=== PATIENT | female | born 1940 | race Caucasian/White ===

== ENCOUNTER 2016-08-26 09:00 | Day surgery (SDC) | payer OTHER, MEDICARE ==
[~2016-08-26] VITALS: Ht 157.5 cm; Wt 77.1 kg
[~2016-08-26 09:00] MED LIST: 0.9% Sodium Chloride 1,000 ML IV PRN; ALBUTHFA INH; CALC-743 PO; CHOL10002 PO; CHOL10008 PO; FEXO180T PO; FISH1CAP16 PO; FLO220 INH; FLONASE; LIOT25TA4 PO; LORA10CA PO; MECL-114 PO; METO50TA PO; MULT-1018 PO; OLP.1OP5 AFF EYE; OMEP20CA11 PO; Sodium Chloride LOK Flush 10 mL Syringe IV PRN; VITA1TAB31 PO; [UNRECOGNIZED DRUG - CODE] PO; fentaNYL-PF 50 mCg/mL 2 mL Inj IVPUSH PRN
[2016-08-26 09:42] VITALS: BP 127/80; PULSE 86; RESP 16; O2SAT 98
[2016-08-26 10:57] VITALS: BP 115/59; PULSE 76; RESP 16; O2SAT 92
--- NOTE | 2016-08-26 10:57 | PCM.ENDCOL ---
Colonoscopy Date of Service: August 26, 2016 Physician Farhan Skinner MD Pre Procedure Diagnosis: Screening personal history of colon polyp Post Procedure Dx & Findings: Polyp hemorrhoids and diverticula Procedure Colonoscopy PROCEDURE IN DETAIL: Prep adequate Withdrawal time 15 minutes After unremarkable rectal examination the Olympus video colonoscope was inserted patient's anal canal and was advanced to cecum. Landmarks were identified including the ileocecal valve and appendiceal orifice. Scope was withdrawn systematically. Visualized colonic mucosa showed healthy shiny mucosa with normal healthy-appearing vasculature. In the ascending colon, there were 2 polyps. One was 2-3 mm in size which was removed completely using cold snare. The other one was 1 mm in size which was removed completely using cold forceps. In the descending colon there was also a 1 mm polyp which was removed completely using cold forceps. In the sigmoid colon there were several medium size diverticula. However patient had isolated diverticuli medium size into the right colon. In the rectum retroflexion was done which showed hemorrhoids. Anal canal was inspected carefully on the way out and hemorrhoids noted. Impression Polyps 3 status post complete removal Diverticuli Hemorrhoids Personal history of colon polyp Recommendation Repeat colonoscopy 3 years Diverticular diet Presedation Assessment Risks and Benefits Informed consent was obtained from the patient after all risks and benefits including but not limited to drug reaction, infection, pain, bleeding, perforation, as well as alternatives were discussed. Patient monitoring Continuous pulse oximetry, cardiac monitoring, blood pressure monitoring, IV access, and oxygen at 2L per nasal cannula. Periprocedural Fentanyl: Fentanyl 100mcg Incrementally Midazolam: Midazolam 5mg Incrementally Complications There were no periprocedural complications identified. Post Procedure Plan Post Procedure Recommendations 1. Restrict activities today. 2. Resume normal activities in the morning. 3. Resume medications. 4. Patient informed of normal post procedure side effects as bloating, drowsiness, blood streaking in the stool. 5. average risk CRCS. If colon polyps come back as: -Hyperplastic- can repeat colonoscopy in 10 years -Tubular adenoma- repeat colonoscopy in 5 years -Tubulovillous/villous adenoma- repeat colonoscopy in 3 years -If any dysplasia- return to clinic as soon as possible 6. Please don't hesitate to call me with any questions. Farhan Skinner MD August 26, 2016 10:57
[2016-08-26 11:09] VITALS: BP 115/48; PULSE 76; RESP 16; O2SAT 99
--- NOTE | 2016-08-29 14:54 | PATH ---
SURGICAL PATHOLOGY Attending Physician:Farhan Skinner M.D. CASE STATUS: Signed Out PATIENT NAME: MATTHIEU HICKEY PID: [id number] : 1940 DATE COLLECTED:08/26/2016 17:31 SPECIMEN: 1: Colon, Biopsy 2: Colon, Biopsy CLINICAL HISTORY: 1). ASCENDING POLYPS X2 2). DESCENDING POLYP X1 FINAL DIAGNOSIS: 1.. Ascending Colon, Polyps x2, Biopsies: Portions of tubular adenoma x3; negative for high-grade dysplasia. Superficial portion of colorectal mucosa x1 with no significant histomorphologic abnormality. 2. Descending Colon, Polyp, Biopsy: Superficial portions of colorectal mucosa x2 with no significant histomorphologic abnormality. Please see comment. ICD10: K63.5 NOTE: Part 2: Additional levels through the block are non-contributory. GROSS DESCRIPTION: The specimen is received in two formalin filled containers labeled with the patient's name. 1). The specimen is sublabeled "ascending polyp x2" and consists of 4 tiny portions of tissue which aggregate to 0.3 x 0.3 x 0.2 CM. The specimen is entirely submitted in cassette 1A. 2). The specimen is sublabeled "descending polyp x1" and consists of a 0.2 x 0.2 x 0.2 CM portion of tissue which is entirely submitted in cassette 2A. 08/26/2016 [facility] ICD-9 CODES: CPT CODES: 1: 19788 2: 89032 Electronically Signed Out Lulu Grande MD [facility] [address], [place] [address] Technical component performed at [facility], [facility] [address], [place], [address]
== END 2016-08-26 23:59 | disposition home or self-care (01) ==
LOC: END 09:00
PROVIDERS: ATTEND Internal Medicine
DX: Z12.11 Encounter for screening for malignant neoplasm of colon (principal); D12.2 Benign neoplasm of ascending colon; K63.5 Polyp of colon; K57.30 Diverticulosis of large intestine without perforation or abscess without bleeding; K64.8 Other hemorrhoids; Z86.010 Personal history of colon polyps; Z80.0 Family history of malignant neoplasm of digestive organs; I48.91 Unspecified atrial fibrillation; I10 Essential (primary) hypertension; J45.909 Unspecified asthma, uncomplicated; K21.9 Gastro-esophageal reflux disease without esophagitis; E03.9 Hypothyroidism, unspecified; M85.80 Other specified disorders of bone density and structure, unspecified site; Z79.51 Long term (current) use of inhaled steroids
CPT/HCPCS: 45380; 45385; 99153; G0500; J7030